=== PATIENT | male | born 1965 | race Caucasian/White ===

== ENCOUNTER 2016-10-07 17:56 | Emergency (ER) | payer BC, OTHER ==
[~2016-10-07] VITALS: Ht 167.6 cm; Wt 0.9 kg
[2016-10-07 17:57] VITALS: BP 151/83
[2016-10-07] MEDS ORDERED: MOME50SP (19:48)
== END 2016-10-07 20:05 | disposition home or self-care (01) ==
LOC: M ED 19:19
DX: L72.3 Sebaceous cyst (principal)

== ENCOUNTER 2019-05-17 11:45 | Emergency (ER) | payer OTHER ==
[~2019-05-17] VITALS: Ht 188 cm; Wt 78.9 kg
[~2019-05-17 11:45] MED LIST: MOME50SP
[2019-05-17 11:46] VITALS: BP 136/82
[2019-05-17] MEDS ORDERED: IBUP-1114 PO (12:47)
--- NOTE | 2019-05-17 19:56 | ECGEPIP ---
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
== END 2019-05-17 14:19 | disposition left against medical advice (07) ==
LOC: M ED 11:45
DX: Z53.29 Procedure and treatment not carried out because of patient's decision for other reasons (principal)